=== PATIENT | female | born 1970 | race Caucasian/White ===

== ENCOUNTER 2016-09-10 09:43 | Observation (INO) | payer BC ==
[~2016-09-10] VITALS: Ht 170.2 cm; Wt 109.0 kg
[2016-09-10] VITALS (8 sets, daily range): BP systolic 119–138; BP diastolic 67–79; PULSE 68–86; RESP 14–22; TEMP 97.4–97.8; O2SAT 93–100
[2016-09-10] MEDS ORDERED: SODIUM CHLOR 0.9% 1000 ML INJ 1,000 ML IV SCH (10:05)
[2016-09-10] MEDS ORDERED: SODIUM CHLORIDE 0.9% FLUSH 5 ML FLUSH IVF PRN (10:15)
--- NOTE | 2016-09-10 10:19 | PD ---
HPI Chief Complaint: Altered Mental Status Time Seen by Provider: 10:05 Travel History International Travel<30 days: No Contact w/Intl Traveler<30days: No Traveled to known affect area: No History of Present Illness HPI The patient is a 46-year-old female who presents to the emergency department via EMS for altered mental status. The patient is currently in town for the [place]. The patient wants to race yesterday with family members, had approximately 6 beers to drink according to the . The patient does have a history of chronic back pain and anxiety for which she takes pain medications and Xanax, however, did not take those medications because she had been drinking alcohol. The states the patient ate dinner last night and went to bed feeling well. However, when she awakened this morning she felt nauseated and dizzy. The states the patient has appeared confused at times, has difficulty walking, and has complained of "not feeling". The patient denies taking too many of her chronic pain medications or anxiety medications. The patient denies any headache, but feels "off- balance ", nauseated, and dizzy. The patient denies any history of intracranial hemorrhage or diabetes. The patient's blood sugar was 171 according to the nursing staff upon arrival. The patient denies any fever, chills, or sweats. The patient denies any chest pain, shortness of breath, or abdominal pain. PFSH Past Medical History Asthma: Yes Hypertension: Yes Respiratory: Yes (ASTHMA / SARCOIDOSIS) Influenza Vaccination: No ?: Not Past Surgical History Hysterectomy: Yes (HTN) Other Surgery: Yes (BACK SURGERY) Social History Alcohol Use: Yes (OCCASIONALLY) Tobacco Use: No Substance Use: No Allergies-Medications (Allergen,Severity, Reaction): Coded Allergies: No Known Allergies (Unverified , 09/10/16) Reported Meds & Prescriptions Reported Meds & Active Scripts Active Reported Melatonin (Melatonin (Bulk)) 1 Pow Pow 10 Mg PO HS Flexeril (Cyclobenzaprine HCl) 10 Mg Tab 10 Mg PO TID Ibuprofen 800 Mg Tab 800 Mg PO Q8H PRN Alprazolam 1 Mg Tab 1 Mg PO DAILY PRN Hydrocodone-Acetaminophen 10-325 mg Tab 1 Tab PO Q6H PRN Zyrtec Allergy (Cetirizine HCl) 10 Mg Cap 10 Mg PO DAILY Review of Systems Except as stated in HPI: all other systems reviewed are Neg General / Constitutional: No: Fever HENT: Positive: Lightheadedness, No: Headaches Cardiovascular: No: Chest Pain or Discomfort Respiratory: No: Shortness of Breath Gastrointestinal: Positive: Nausea, Vomiting, No: Diarrhea, Abdominal Pain Musculoskeletal: Positive: Weakness Neurologic: Positive: Dizziness, Change in Mentation, Slurred Speech, No: Paresthesia, Sensory Disturbance Psychiatric: No: Substance Abuse Physical Exam Narrative GENERAL: Awake, somewhat lethargic 46-year-old female who appears her stated age and is in no acute respiratory distress. SKIN: Warm and dry. HEAD: Atraumatic. Normocephalic. EYES: Pupils equal and round. Pupils are 5 mm bilateral and reactive. ENT: No nasal bleeding or discharge. Slightly dry mucous membranes. NECK: Trachea midline. No JVD. CARDIOVASCULAR: Regular rate and rhythm. No murmur appreciated. RESPIRATORY: No accessory muscle use. Clear to auscultation. Breath sounds equal bilaterally. GASTROINTESTINAL: Abdomen soft, non-tender, nondistended. Obese, no rebound tenderness. MUSCULOSKELETAL: No obvious deformities. No clubbing. No cyanosis. No edema. NEUROLOGICAL: Awake, somewhat lethargic. No obvious cranial nerve deficits. Finger to nose is normal. No drift of the upper extremities. Patient is able to move her lower extremities. She is oriented to month, year, and place. PSYCHIATRIC: Unable to assess. Data Data Last Documented VS Vital Signs Date Time Temp Pulse Resp B/P Pulse Ox O2 Delivery O2 Flow Rate FiO2 09/10/16 11:58 69 18 133/69 100 Nasal Cannula 2 09/10/16 09:47 97.5 Orders Electrocardiogram (09/10/16 ) Ammonia (09/10/16 10:05) Complete Blood Count With Diff (09/10/16 10:05) Comprehensive Metabolic Panel (09/10/16 10:05) Creatine Kinase (Cpk) (09/10/16 10:05) Prothrombin Time / Inr (Pt) (09/10/16 10:05) Act Partial Throm Time (Ptt) (09/10/16 10:05) Troponin I (09/10/16 10:05) Thyroid Stimulating Hormone (09/10/16 10:05) Urinalysis - C+S If Indicated (09/10/16 10:05) Chest, Single Ap (09/10/16 10:05) Ct Brain W/O Iv Contrast(Rout) (09/10/16 10:05) Blood Glucose (09/10/16 10:05) Ecg Monitoring (09/10/16 10:05) Iv Access Insert/Monitor (09/10/16 10:05) Oximetry (09/10/16 10:05) Sodium Chloride 0.9% Flush (Ns Flush) (09/10/16 10:15) Sodium Chlor 0.9% 1000 Ml Inj (Ns 1000 M (09/10/16 10:05) Drug Screen, Random Urine (09/10/16 10:05) Alcohol (Ethanol) (09/10/16 10:05) Resp Blood Gas Venous (09/10/16 ) Ondansetron Inj (Zofran Inj) (09/10/16 10:30) Blood Gas Venous (Vbg) (09/10/16 10:17) CKMB (09/10/16 10:22) CKMB% (09/10/16 10:22) Labs Laboratory Tests Test 09/10/16 09/10/16 10:17 10:22 Blood Gas Puncture Site I.V. Blood Gas Patient Temperature 98.6 Venous Blood pH 7.32 Venous Blood Partial Pressure 50 mmHg CO2 Venous Blood Partial Pressure 47 mmHg O2 Venous Blood HCO3 25 mmol/L Venous Blood Oxygen Saturation 77 % Venous Blood Oxygen Content 14.6 Vol % Venous Blood Base Excess -0.3 mmol/L Oxygen Delivery Device NASAL CANNULA Blood Gas Liter Flow 2 L/M White Blood Count 5.9 TH/MM3 Red Blood Count 4.40 MIL/MM3 Hemoglobin 13.4 GM/DL Hematocrit 38.8 % Mean Corpuscular Volume 88.2 FL Mean Corpuscular Hemoglobin 30.6 PG Mean Corpuscular Hemoglobin 34.7 % Concent Red Cell Distribution Width 13.5 % Platelet Count 290 TH/MM3 Mean Platelet Volume 8.4 FL Neutrophils (%) (Auto) 40.3 % Lymphocytes (%) (Auto) 45.1 % Monocytes (%) (Auto) 8.9 % Eosinophils (%) (Auto) 4.8 % Basophils (%) (Auto) 0.9 % Neutrophils # (Auto) 2.4 TH/MM3 Lymphocytes # (Auto) 2.7 TH/MM3 Monocytes # (Auto) 0.5 TH/MM3 Eosinophils # (Auto) 0.3 TH/MM3 Basophils # (Auto) 0.1 TH/MM3 CBC Comment DIFF FINAL Differential Comment Prothrombin Time 10.5 SEC Prothromb Time International 1.0 RATIO Ratio Activated Partial 21.7 SEC Thromboplast Time Sodium Level 138 MEQ/L Potassium Level 3.8 MEQ/L Chloride Level 104 MEQ/L Carbon Dioxide Level 25.5 MEQ/L Anion Gap 9 MEQ/L Blood Urea Nitrogen 13 MG/DL Creatinine 0.87 MG/DL Estimat Glomerular Filtration 70 ML/MIN Rate Random Glucose 193 MG/DL Calcium Level 8.5 MG/DL Total Bilirubin 0.4 MG/DL Aspartate Amino Transf 36 U/L (AST/SGOT) Alanine Aminotransferase 38 U/L (ALT/SGPT) Alkaline Phosphatase 86 U/L Ammonia 23 MCMOL/L Total Creatine Kinase 858 U/L Creatine Kinase MB 4.9 NG/ML Creatine Kinase MB % 0.6 % Troponin I LESS THAN 0.02 NG/ML Total Protein 6.7 GM/DL Albumin 3.8 GM/DL Thyroid Stimulating Hormone 0.299 uIU/ML 3rd Gen Ethyl Alcohol Level LESS THAN 3 MG/DL [facility] Medical Decision Making Medical Screen Exam Complete: Yes Emergency Medical Condition: Yes Medical Record Reviewed: Yes Interpretation(s) EKG reveals normal sinus rhythm with a rate 80. Q wave noted in lead 3. Last Impressions Chest X-Ray 09/10/16 1005 Signed Impressions: Service Date/Time: Saturday, September 10, 2016 10:02 - CONCLUSION: Negative for acute process. Marek Robles MD FACR CT of the brain is negative for acute process Differential Diagnosis Differential diagnosis includes intracranial hemorrhage, subarachnoid hemorrhage , CVA, metabolic encephalopathy, medication side effect, unintentional overdose , drug ingestion. Narrative Course IV was established, labs are drawn and sent, and the patient was placed on cardiac telemetry monitoring and continuous pulse oximetry monitoring. EKG was ordered and interpreted. Chest x-ray was ordered. CT of the brain was ordered. The patient was administered Zofran [address] the brain is negative. Chest x-rays unremarkable. Patient's TSH is mildly low at 0.299, CK is mildly elevated in the 800s, otherwise lab work is unremarkable. The patient was reevaluated at 12 PM. The patient was reassessed, she is still lethargic, still feels like her arms and legs are heavy as well as having dizziness. The states that they the medications out prior to coming on vacation, he does not believe this is a drug overdose or ingestion causing the symptoms. No obvious source of the patient's altered mental status and encephalopathy, I suspect medication induced. However, patient denies over ingestion of her medications. Therefore, patient will be 23 hour observation, may benefit from MRI to rule out cerebellar/brain stem infarct and may benefit from neurology consultation. The on-call medical team was paged for 23 hour observation. Physician Communication Physician Communication The on-call medical team was paged for 23 hour observation. Diagnosis Primary Impression: Altered mental status Qualified Code: R41.0 - Disorientation Admitting Information Admitting Physician Requests: Observation Condition: Stable Kan Braden MD Sep 10, 2016 10:19
[2016-09-10 10:28] LABS: BLOOD GAS VENOUS BASE EXCESS -0.3 mmol/L (-2-2); BLOOD GAS VENOUS HCO3 25 mmol/L (22-26); BLOOD GAS VENOUS O2 CONTENT 14.6 Vol % (9.0-17.0); BLOOD GAS VENOUS O2 HGB SAT 77 % (70-76); BLOOD GAS VENOUS PCO2 50 mmHg (44-48); BLOOD GAS VENOUS PO2 47 mmHg (35-40); BLOOD GAS VENOUS pH 7.32 (7.360-7.400); CRITICAL VALUE YES; DRAW SITE I.V.; LITER FLOW 2 L/M; OXYGEN DEVICE NASAL CANNULA; STAT YES; TEMP CORR TO 98.6
[2016-09-10] MEDS ORDERED: ZYRT10CA PO (10:29)
[2016-09-10] MEDS ORDERED: ONDANSETRON HCL 4 MG/2 ML VIAL IV PUSH ONE (10:30)
[2016-09-10 10:34] LABS: AUTOMATED NEUTROPHIL # 2.4 TH/MM3 (1.8-7.7); BASOPHIL # 0.1 TH/MM3 (0-0.2); BASOPHIL % 0.9 % (0.0-2.0); EOSINOPHIL # 0.3 TH/MM3 (0-0.4); EOSINOPHIL % 4.8 % (0.0-4.0); HEMATOCRIT 38.8 % (35.0-46.0); HEMO FLAGS DIFF FINAL; LYMPH % 45.1 % (9.0-44.0); LYMPHOCYTE # 2.7 TH/MM3 (1.0-4.8); MEAN CELL VOLUME 88.2 FL (80.0-100.0); MEAN CORPUSCULAR HEMOGLOBIN 30.6 PG (27.0-34.0); MEAN CORPUSCULAR HGB CONC 34.7 % (32.0-36.0); MONO % 8.9 % (0.0-8.0); NEUT % 40.3 % (16.0-70.0); PLATELET COUNT 290 TH/MM3 (150-450); RED CELL DISTRIBUTION WIDTH 13.5 % (11.6-17.2); WHITE BLOOD COUNT 5.9 TH/MM3 (4.0-11.0)
--- NOTE | 2016-09-10 10:40 | RADRPT ---
EXAM DATE/TIME: 09/10/2016 10:02 [facility] COMPARISON: No previous studies available for comparison. INDICATIONS : Syncope. MEDICAL HISTORY : Hypertension. SURGICAL HISTORY : Lung biopsy. ENCOUNTER: Initial ACUITY: 1 day PAIN SCORE: 0/10 LOCATION: Bilateral chest FINDINGS: A single view of the chest demonstrates the lungs to be symmetrically aerated without evidence of mas s, infiltrate or effusion. The cardiomediastinal contours are unremarkable. Osseous structures are intact. CONCLUSION: Negative for acute process. Marek Robles MD FACR on September 10, 2016 at 10:38 Board Certified Radiologist. This report was verified electronically.
[2016-09-10 10:51] LABS: ANION GAP 9 MEQ/L (5-15)
[2016-09-10 10:52] LABS: APTT (PATIENT) 21.7 SEC (24.3-30.1); PROTHROMBIN TIME - PATIENT 10.5 SEC (9.8-11.6)
[2016-09-10] MEDS ORDERED: MELAPOW2 PO (10:52)
[2016-09-10] MEDS ORDERED: IBUP800T23 PO (10:52)
[2016-09-10] MEDS ORDERED: HYDR-3583 PO (10:52)
[2016-09-10] MEDS ORDERED: ALPR1TAB3 PO (10:52)
[2016-09-10] MEDS ORDERED: CYCL1TAB29 PO (10:52)
[2016-09-10 11:02] LABS: ALKALINE PHOSPHATASE 86 U/L (45-117); ALT (GPT) 38 U/L (10-53); AST (GOT) 36 U/L (15-37); BICARBONATE 25.5 MEQ/L (21.0-32.0); BLOOD UREA NITROGEN 13 MG/DL (7-18); CHLORIDE 104 MEQ/L (98-107); CREATINE KINASE 858 U/L (26-192); GLOMERULAR FILTRATION RATE 70 ML/MIN (>89); POTASSIUM 3.8 MEQ/L (3.5-5.1); SODIUM (NA) 138 MEQ/L (136-145); TOTAL BILIRUBIN ADULT 0.4 MG/DL (0.2-1.0)
[2016-09-10 11:20] LABS: CKMB 4.9 NG/ML (0.5-3.6)
--- NOTE | 2016-09-10 11:57 | RADRPT ---
EXAM DATE/TIME: 09/10/2016 11:44 [facility] COMPARISON: No previous studies available for comparison. INDICATIONS : Altered mental status,lehtargic today RADIATION DOSE: 56.35 CTDIvol (mGy) MEDICAL HISTORY : Hypertension. SURGICAL HISTORY : Hysterectomy. ENCOUNTER: Initial ACUITY: 1 day PAIN SCALE: 0/10 LOCATION: cranial TECHNIQUE: Multiple contiguous axial images were obtained of the head. Using automated exposure control and adj ustment of the mA and/or kV according to patient size, radiation dose was kept as low as reasonably a chievable to obtain optimal diagnostic quality images. FINDINGS: CEREBRUM: The ventricles are normal for age. No evidence of midline shift, mass lesion, hemorrhage or acute in farction. No extra-axial fluid collections are seen. POSTERIOR FOSSA: The cerebellum and brainstem are intact. The 4th ventricle is midline. The cerebellopontine angle i s unremarkable. EXTRACRANIAL: The visualized portion of the orbits is intact. SKULL: The calvaria is intact. No evidence of skull fracture. CONCLUSION: Negative for acute process. In Marek Robles MD FACR on September 10, 2016 at 11:54 Board Certified Radiologist. This report was verified electronically.
--- NOTE | 2016-09-10 12:31 | HHI.HP ---
HPI Service Family Medicine Primary Care Physician Non-Staff Admission Diagnosis altered mental status, encephalopathy versus drug ingestion Diagnoses: International Travel<30 Days: No Contact w/Intl Traveler<30days: No Known Affected Area: No History of Present Illness Patient is a 46-year-old female with a PMH significant for asthma and sarcoidosis. Presented due to weakness and altered mental status. This morning she woke up feeling weak with her extremities feeling heavy. She was able to ambulate to the bathroom and back but became very afraid as this was very abnormal. She endorsed associated vertigo, blurry vision, and slurred speech. did not see any facial droop. Denied any chest pain, SOB, diaphoresis. No prior episodes similar to this. Her speech, vision, dizziness has improved since being in the hospital. Denied any loss of consciousness or syncope. Prior to the events today, she was asymptomatic. She was attending the race at which time she had about 6 beers which is atypical for her. She takes [place], Xanax, Flexeril normally at home but did not take more than typical. Reports feeling asymptomatic except for increase leg cramps prior to going bed. She does report having leg cramps at baseline. (Gayathri Grey MD R2) Review of Systems Constitutional: COMPLAINS OF: Fatigue, Dizziness, DENIES: Diaphoretic episodes , Fever, Change in appetite Eyes: COMPLAINS OF: Blurred vision, DENIES: Eye pain Ears, nose, mouth, throat: DENIES: Throat pain, Hoarseness Respiratory: DENIES: Cough, Shortness of breath Cardiovascular: DENIES: Chest pain, Syncope, Dyspnea on Exertion, Lower Extremity Edema Gastrointestinal: DENIES: Abdominal pain, Constipation, Diarrhea, Nausea Genitourinary: DENIES: Dysuria Musculoskeletal: DENIES: Joint pain Integumentary: DENIES: Rash Neurologic: DENIES: Headache, Localized weakness (Gayathri Grey MD R2) Past Family Social History Past Medical History Sarcodosis Asthma HTN Past Surgical History Hysterectomy Laminectomy Right knee meniscus repair Lung biopsy for sarcoidosis Reported Medications Reported Meds & Active Scripts Active Reported Melatonin (Melatonin (Bulk)) 1 Pow Pow 10 Mg PO HS Flexeril (Cyclobenzaprine HCl) 5 Mg Tab 10 Mg PO TID Ibuprofen 800 Mg Tab 800 Mg PO Q8H PRN Alprazolam 1 Mg Tab 1 Mg PO DAILY PRN Hydrocodone-Acetaminophen 10-325 mg Tab 1 Tab PO Q6H PRN Zyrtec Allergy (Cetirizine HCl) 10 Mg Cap 10 Mg PO DAILY (Gayathri Grey MD R2) Allergies: Coded Allergies: No Known Allergies (Unverified , 09/10/16) Family History Mother: HTN, HLD Father: Asthma, HTN, CAD Social History Lives around [place], [place]. Lives with 2 children. In the area for [employer] Tobacco: denies Alcohol: socially on occasion Illicit: denies (Gayathri Grey MD R2) Physical Exam Vital Signs Vital Signs Date Time Temp Pulse Resp B/P Pulse Ox O2 Delivery O2 Flow Rate FiO2 09/10/16 11:58 69 18 133/69 100 Nasal Cannula 2 09/10/16 09:52 75 16 129/79 94 Nasal Cannula 2 09/10/16 09:47 97.5 86 16 129/79 93 Physical Exam GENERAL: This is a well-nourished, well-developed patient, in no apparent distress. SKIN: No rashes, ecchymoses or lesions. Cool and dry. EYES: Pupils equal round and reactive, increased dilation bilaterally. Extraocular motions intact. No scleral icterus. No injection or drainage. ENT: Nose without bleeding, purulent drainage. Throat without erythema, tonsillar hypertrophy or exudate. Uvula midline. Airway patent. NECK: No JVD or lymphadenopathy. CARDIOVASCULAR: Regular rate and rhythm without murmurs, gallops, or rubs. RESPIRATORY: Clear to auscultation. Breath sounds equal bilaterally. No wheezes , rales, or rhonchi. GASTROINTESTINAL: Abdomen soft, non-tender, nondistended. No hepato-splenomegaly , or palpable masses. No guarding. MUSCULOSKELETAL: Extremities without clubbing, cyanosis, or edema. No calf tenderness. NEUROLOGICAL: Awake and alert. Cranial nerves II through XII intact. Motor and sensory grossly within normal limits. Normal speech. Laboratory Laboratory Tests Test 09/10/16 09/10/16 10:17 10:22 Blood Gas Puncture Site I.V. Blood Gas Patient Temperature 98.6 Venous Blood pH 7.32 Venous Blood Partial Pressure 50 CO2 Venous Blood Partial Pressure 47 O2 Venous Blood HCO3 25 Venous Blood Oxygen Saturation 77 Venous Blood Oxygen Content 14.6 Venous Blood Base Excess -0.3 Oxygen Delivery Device NASAL CANNULA Blood Gas Liter Flow 2 White Blood Count 5.9 Red Blood Count 4.40 Hemoglobin 13.4 Hematocrit 38.8 Mean Corpuscular Volume 88.2 Mean Corpuscular Hemoglobin 30.6 Mean Corpuscular Hemoglobin 34.7 Concent Red Cell Distribution Width 13.5 Platelet Count 290 Mean Platelet Volume 8.4 Neutrophils (%) (Auto) 40.3 Lymphocytes (%) (Auto) 45.1 Monocytes (%) (Auto) 8.9 Eosinophils (%) (Auto) 4.8 Basophils (%) (Auto) 0.9 Neutrophils # (Auto) 2.4 Lymphocytes # (Auto) 2.7 Monocytes # (Auto) 0.5 Eosinophils # (Auto) 0.3 Basophils # (Auto) 0.1 CBC Comment DIFF FINAL Differential Comment Prothrombin Time 10.5 Prothromb Time International 1.0 Ratio Activated Partial 21.7 Thromboplast Time Sodium Level 138 Potassium Level 3.8 Chloride Level 104 Carbon Dioxide Level 25.5 Anion Gap 9 Blood Urea Nitrogen 13 Creatinine 0.87 Estimat Glomerular Filtration 70 Rate Random Glucose 193 Calcium Level 8.5 Total Bilirubin 0.4 Aspartate Amino Transf 36 (AST/SGOT) Alanine Aminotransferase 38 (ALT/SGPT) Alkaline Phosphatase 86 Ammonia 23 Total Creatine Kinase 858 Creatine Kinase MB 4.9 Creatine Kinase MB % 0.6 Troponin I LESS THAN 0.02 Total Protein 6.7 Albumin 3.8 Thyroid Stimulating Hormone 0.299 3rd Gen Ethyl Alcohol Level LESS THAN 3 (Gayathri Grey MD R2) Result Diagram: 09/10/16 1022 09/10/16 1022 Imaging Last Impressions Head CT 09/10/16 1005 Signed Impressions: Service Date/Time: Saturday, September 10, 2016 11:44 - CONCLUSION: Negative for acute process. In Marek Robles MD FACR Chest X-Ray 09/10/16 1005 Signed Impressions: Service Date/Time: Saturday, September 10, 2016 10:02 - CONCLUSION: Negative for acute process. Marek Robles MD FACR (Gayathri Grey MD R2) Assessment and Plan Assessment and Plan 46-year-old female with PMH significant for sarcoidosis and asthma. Admitted for altered mental status. Code Status Full Discussed Condition With sdw Dr. Dinero and Dr. Love (Gayathri Grey MD R2) Attending Attestation Patient seen and examined. Case reviewed and discussed with the resident team. Agree with plan of care as discussed with me and documented in the resident note. pt seen on admission in the ED with her (Елена Dinero MD) Problem List: (1) Altered mental status Status: Acute Plan: Improved symptoms of altered mental status, weakness, blurred vision since admission. History significant for 6 beers prior to admission that was outside of her norm. Neurologically patient is intact. Remaining physical exam unremarkable. Etiology unclear, ddx includes medication vs TIA/Stroke vs alcohol/drugs vs rhabdomyolysis vs infectious vs seizure vs electrolyte abnormality. Primary differential includes medication intoxication vs TIA/ ischemic stroke -VBG significant for respiratory acidosis -CK and random glucose elevated -Suppressed TSH -Ammonia unremarkable -UDS, UA, A1c, free T4 ordered -Troponin and EKG unremarkable -Cardiac telemetry -Neuro and glucose checks -Permissive HTN and head of bed flat Imaging: * MRI ordered * Head CT: Negative * CXR: Negative (2) Asthma Status: Acute Plan: Continue home Symbicort -Albuterol and Duonebs (3) Nutrition, metabolism, and development symptoms Status: Acute Plan: Diet: Regular Electrolytes: Unremarkable Fluids: NS at 120 DVT prophylaxis SCDs, no chemical anticoagulation due to concern of fall GI prophylaxis: None indicated Chronic conditions: * Anxiety: Continued home Xanax * HTN: Patient unaware of name of medication, Vasotec PRN (Gayathri Grey MD R2) Problem Qualifiers (1) Altered mental status: Qualified Code: R41.0 - Disorientation (2) Asthma: Qualified Code: J45.909 - Uncomplicated asthma, unspecified asthma severity Gayathri Grey MD R2 Sep 10, 2016 12:31 Елена Dinero MD Sep 12, 2016 13:37
[2016-09-10] MEDS ORDERED: ALPRAZolam 1 MG TAB PO PRN ×2 (12:45→21:00)
[2016-09-10] MEDS ORDERED: CALCIUM CARBONATE 500 MG CHEWABLE TAB CHEW PRN (13:30)
[2016-09-10] MEDS ORDERED: ONDANSETRON HCL 4 MG/2 ML VIAL IVP PRN (13:30)
[2016-09-10] MEDS ORDERED: SODIUM CHLORIDE 0.9% FLUSH 5 ML FLUSH FLUSH PRN (13:30)
[2016-09-10] MEDS ORDERED: BISACODYL 10 MG SUPP PR PRN (13:30)
[2016-09-10] MEDS ORDERED: RESP: ALBUTEROL 2.5 MG/3 ML NEB (PRN) INH (13:30)
[2016-09-10] MEDS ORDERED: ACETAMINOPHEN 325 MG TAB PO PRN (13:30)
[2016-09-10] MEDS ORDERED: NALOXONE HCL 0.4 MG/ML AMP IV PRN (13:30)
[2016-09-10] MEDS ORDERED: RESP: ALBUTEROL 2.5 MG/IPRATROPIUM 0.5 MG NEB (PRN) NEB (14:00)
[2016-09-10] MEDS ORDERED: SYMB160A INH (14:03)
[2016-09-10] MEDS ORDERED: SODIUM CHLORIDE 0.9% FLUSH 5 ML FLUSH IV FLUSH SCH (14:15)
[2016-09-10] MEDS ORDERED: FLUMAZENIL 0.5 MG/5 ML VIAL IV PUSH PRN (14:15)
[2016-09-10] MEDS ORDERED: DEXTROSE 50% IN WATER 50 ML VIAL(D50) IV PUSH PRN (14:15)
[2016-09-10] MEDS ORDERED: ENALAPRILAT 1.25 MG/ML VIAL IV PRN ×2 (14:15→15:00)
[2016-09-10] MEDS ORDERED: GLUCAGON 1 MG/ML VIAL IM/SQ PRN (14:15)
[2016-09-10] MEDS ORDERED: LORazepam 1 MG TAB PO PRN (14:15)
[2016-09-10] MEDS ORDERED: LORazepam 2 MG TAB PO PRN (14:15)
[2016-09-10] MEDS ORDERED: LORazepam 2 MG/ML VIAL IV PUSH PRN ×4 (14:15)
[2016-09-10] MEDS ORDERED: SODIUM CHLORIDE 0.9% FLUSH 5 ML FLUSH IV FLUSH PRN (14:15)
[2016-09-10] MEDS: SODIUM CHLOR 0.9% 1000 ML INJ 1,000 ML IV SCH ×2 (14:37→22:18)
[2016-09-10] MEDS: SODIUM CHLORIDE 0.9% FLUSH 5 ML FLUSH FLUSH SCH ×2 (14:37→21:00)
[2016-09-10] MEDS: ASPIRIN 81 MG CHEW TAB PO SCH (14:58)
[2016-09-10] MEDS: FOLIC ACID 1 MG TAB PO SCH (14:58)
[2016-09-10] MEDS: THIAMINE HCL 100 MG TAB PO SCH (14:58)
[2016-09-10] MEDS: MULTIVITAMINS/MINERALS THERAPEUTIC TAB PO SCH (14:58)
[2016-09-10 15:39] LABS: BLOOD, URINE NEG (NEG); GLUCOSE,URINE NEG (NEG); HYALINE CAST, URINE 1 /lpf (RARE); KETONE, URINE NEG (NEG); MUCUS URINE FEW /lpf (OCC); NITRITE,URINE NEG (NEG); PH, URINE 6.5 (5.0-8.5); SQUAMOUS EPITHELIAL CELL URINE 2 /hpf (0-5); TRANSITIONAL EPI CELLS, URINE <1 /hpf; URINE COLOR YELLOW (YELLW/STRAW)
[2016-09-10 15:41] LABS: COMMENT (UR) CATH-CULT NOT IND; CULTURE IF INDICATED CATH CULTURE NOT IND
[2016-09-10 15:44] LABS: AMPHETAMINE, URINE NEG (NEG); BARBITURATES, URINE NEG (NEG); COCAINE, URINE NEG (NEG)
[2016-09-10] MEDS: INSULIN ASPART SUPPLEMENTAL SCALE SQ SCH ×2 (16:00→21:00)
[2016-09-10] MEDS ORDERED: GADODIAMIDE PF 287 MG/ML 20 ML VIAL (for RAD MRI) IV ONE (17:46)
--- NOTE | 2016-09-10 18:46 | RADRPT ---
EXAM DATE/TIME: 09/10/2016 17:23 [facility] COMPARISON: No previous studies available for comparison. INDICATIONS : Syncope. CONTRAST: 21 cc Omniscan (gadodiamide) IV MEDICAL HISTORY : Hypertension. Asthma. SURGICAL HISTORY : Hysterectomy. Fusion, lumbar. ENCOUNTER: Initial ACUITY: 1 day PAIN SCORE: 0/10 LOCATION: cranial TECHNIQUE: Multiplanar, multisequence MRI of the brain was performed both prior to and following the administrat ion of paramagnetic contrast. FINDINGS: CEREBRUM: The ventricles are normal for age. No evidence of midline shift, mass lesion, hemorrhage or acute in farction. No extraaxial fluid collections are seen. The pituitary gland and suprasellar cistern are normal in configuration. WHITE MATTER: No significant signal abnormalities are seen in the white matter. POSTERIOR FOSSA: The cerebellum and brainstem are intact. The 4th ventricle is midline. The cerebellopontine angle is unremarkable. The cerebellar tonsils are normal in position. DIFFUSION IMAGING: No focal areas of restricted diffusion are seen. No evidence of acute infarction. EXTRACRANIAL: The visualized portions of the orbits and paranasal sinuses are unremarkable. POST-CONTRAST: No abnormal areas of parenchymal or dural enhancement. No evidence of blood-brain barrier breakdown. CONCLUSION: No acute disease. Ambrocio Murdock MD on September 10, 2016 at 18:44 Board Certified Radiologist. This report was verified electronically.
[2016-09-11 00:10] VITALS: BP 152/77; PULSE 84; RESP 23; TEMP 97.9; O2SAT 99
[2016-09-11 02:19] VITALS: PULSE 70
[2016-09-11 03:57] VITALS: BP 135/72; PULSE 68; RESP 23; TEMP 97.8; O2SAT 95
[2016-09-11] MEDS: SODIUM CHLOR 0.9% 1000 ML INJ 1,000 ML IV SCH (04:30)
[2016-09-11] MEDS: INSULIN ASPART SUPPLEMENTAL SCALE SQ SCH (07:00)
[2016-09-11 07:23] LABS: ANION GAP 9 MEQ/L (5-15); AUTOMATED NEUTROPHIL # 2.9 TH/MM3 (1.8-7.7); BASOPHIL % 0.7 % (0.0-2.0); BICARBONATE 25.1 MEQ/L (21.0-32.0); BLOOD UREA NITROGEN 9 MG/DL (7-18); CHLORIDE 111 MEQ/L (98-107); EOSINOPHIL # 0.2 TH/MM3 (0-0.4); EOSINOPHIL % 3.6 % (0.0-4.0); GLOMERULAR FILTRATION RATE 82 ML/MIN (>89); HEMATOCRIT 39.7 % (35.0-46.0); HEMO FLAGS DIFF FINAL; LYMPH % 31.7 % (9.0-44.0); LYMPHOCYTE # 1.6 TH/MM3 (1.0-4.8); MEAN CELL VOLUME 88.7 FL (80.0-100.0); MEAN CORPUSCULAR HEMOGLOBIN 30.2 PG (27.0-34.0); MEAN CORPUSCULAR HGB CONC 34.1 % (32.0-36.0); MONO % 6.1 % (0.0-8.0); NEUT % 57.9 % (16.0-70.0); PLATELET COUNT 244 TH/MM3 (150-450); RED BLOOD COUNT 4.47 MIL/MM3 (4.00-5.30); RED CELL DISTRIBUTION WIDTH 13.6 % (11.6-17.2); SODIUM (NA) 145 MEQ/L (136-145)
[2016-09-11 07:25] LABS: CREATINE KINASE 456 U/L (26-192); HDL CHOLESTEROL 55.8 MG/DL (40.0-60.0); LDL CHOLESTEROL 64 MG/DL (0-99)
[2016-09-11 07:59] LABS: CKMB 2.3 NG/ML (0.5-3.6)
[2016-09-11 08:20] VITALS: BP 153/87; PULSE 70; RESP 18; TEMP 97.7; O2SAT 93
[2016-09-11 08:23] VITALS: PULSE 67
[2016-09-11] MEDS: SODIUM CHLORIDE 0.9% FLUSH 5 ML FLUSH FLUSH SCH (09:00)
[2016-09-11] MEDS ORDERED: CETIRIZINE HCL 10 MG TAB PO SCH (09:00)
--- NOTE | 2016-09-11 10:04 | HHI.HP ---
[facility] Service Family Medicine Primary Care Physician Non-Staff Admission Diagnosis altered mental status, encephalopathy versus drug ingestion Diagnoses: (1) Altered mental status Diagnosis: Principal (2) Asthma Diagnosis: Principal (3) Nutrition, metabolism, and development symptoms Diagnosis: Principal International Travel<30 Days: No Contact w/Intl Traveler<30days: No Known Affected Area: No History of Present Illness Ms Meza is a 46-year-old female with a PMH significant for asthma and sarcoidosis. Presented due to weakness and altered mental status. This morning she woke up feeling weak with her extremities feeling heavy. She was able to ambulate to the bathroom and back but became very afraid as this was very abnormal. She endorsed associated vertigo, blurry vision, and slurred speech. did not see any facial droop. Denied any chest pain, SOB, diaphoresis. No prior episodes similar to this. Her speech, vision, dizziness has improved since being in the hospital. Denied any loss of consciousness or syncope. Prior to the events today, she was asymptomatic. She was attending the race at which time she had about 6 16 ounce beers which is atypical for her. She takes [place], Xanax, Flexeril normally at home but did not take more than typical. Reports feeling asymptomatic except for increased leg cramps prior to going bed on and off for the past week. She does have a history of restless leg. She does report having leg cramps at baseline. She received a liter of fluid and felt better but not back at baseline until receiving more fluids and rest overnight. She feels back to normal this am and requests being discharged. She had some Rhabdo and the fluids have helped and she is taking great po today and has no renal problems. Review of Systems Other Constitutional: COMPLAINS OF: Fatigue, Dizziness, DENIES: Diaphoretic episodes , Fever, Change in appetite Eyes: COMPLAINS OF: Blurred vision, DENIES: Eye pain Ears, nose, mouth, throat: DENIES: Throat pain, Hoarseness Respiratory: DENIES: Cough, Shortness of breath Cardiovascular: DENIES: Chest pain, Syncope, Dyspnea on Exertion, Lower Extremity Edema Gastrointestinal: DENIES: Abdominal pain, Constipation, Diarrhea, Nausea Genitourinary: DENIES: Dysuria Musculoskeletal: DENIES: Joint pain Integumentary: DENIES: Rash Neurologic: DENIES: Headache, Localized weakness Past Family Social History Past Medical History Sarcodosis Asthma HTN Past Surgical History Hysterectomy Laminectomy Right knee meniscus repair Lung biopsy for sarcoidosis Allergies: Coded Allergies: No Known Allergies (Unverified , 09/10/16) Family History Mother: HTN, HLD Father: Asthma, HTN, CAD Social History Lives around [place], [place]. Lives with 2 children. In the area for [place] Tobacco: denies Alcohol: socially on occasion Illicit: denies Physical Exam Vital Signs Vital Signs Date Time Temp Pulse Resp B/P Pulse Ox O2 Delivery O2 Flow Rate FiO2 09/11/16 08:20 97.7 70 18 153/87 93 09/11/16 03:57 97.8 68 23 135/72 95 09/11/16 02:19 70 09/11/16 00:10 97.9 84 23 152/77 99 09/10/16 22:09 18 09/10/16 19:44 97.8 84 22 119/67 94 09/10/16 15:49 70 09/10/16 15:29 97.4 68 18 138/73 97 09/10/16 13:53 100 Nasal Cannula 2.00 09/10/16 13:35 73 14 136/69 100 Nasal Cannula 2 09/10/16 11:58 69 18 133/69 100 Nasal Cannula 2 Physical Exam GENERAL: This is a well-nourished, well-developed patient, in no apparent distress. She feels back to normal this am SKIN: No rashes, ecchymoses or lesions. Cool and dry. EYES: Pupils equal round and reactive, increased dilation bilaterally on admission. Extraocular motions intact. No scleral icterus. No injection or drainage. ENT: Nose without bleeding, purulent drainage. Throat without erythema, tonsillar hypertrophy or exudate. Uvula midline. Airway patent. NECK: No JVD or lymphadenopathy. CARDIOVASCULAR: Regular rate and rhythm without murmurs, gallops, or rubs. RESPIRATORY: Clear to auscultation. Breath sounds equal bilaterally. No wheezes , rales, or rhonchi. GASTROINTESTINAL: Abdomen soft, non-tender, nondistended. No hepato-splenomegaly , or palpable masses. No guarding. MUSCULOSKELETAL: Extremities without clubbing, cyanosis, or edema. No calf tenderness. NEUROLOGICAL: Awake and alert. Cranial nerves II through XII intact. Motor and sensory grossly within normal limits. Normal speech. Ambulating in rea normally today Laboratory Laboratory Tests Test 09/10/16 09/10/16 09/10/16 09/10/16 10:17 10:22 15:29 15:30 Blood Gas Puncture Site I.V. Blood Gas Patient Temperature 98.6 Venous Blood pH 7.32 Venous Blood Partial Pressure 50 CO2 Venous Blood Partial Pressure 47 O2 Venous Blood HCO3 25 Venous Blood Oxygen Saturation 77 Venous Blood Oxygen Content 14.6 Venous Blood Base Excess -0.3 Oxygen Delivery Device NASAL CANNULA Blood Gas Liter Flow 2 White Blood Count 5.9 Red Blood Count 4.40 Hemoglobin 13.4 Hematocrit 38.8 Mean Corpuscular Volume 88.2 Mean Corpuscular Hemoglobin 30.6 Mean Corpuscular Hemoglobin 34.7 Concent Red Cell Distribution Width 13.5 Platelet Count 290 Mean Platelet Volume 8.4 Neutrophils (%) (Auto) 40.3 Lymphocytes (%) (Auto) 45.1 Monocytes (%) (Auto) 8.9 Eosinophils (%) (Auto) 4.8 Basophils (%) (Auto) 0.9 Neutrophils # (Auto) 2.4 Lymphocytes # (Auto) 2.7 Monocytes # (Auto) 0.5 Eosinophils # (Auto) 0.3 Basophils # (Auto) 0.1 CBC Comment DIFF FINAL Differential Comment Prothrombin Time 10.5 Prothromb Time International 1.0 Ratio Activated Partial 21.7 Thromboplast Time Sodium Level 138 Potassium Level 3.8 Chloride Level 104 Carbon Dioxide Level 25.5 Anion Gap 9 Blood Urea Nitrogen 13 Creatinine 0.87 Estimat Glomerular Filtration 70 Rate Random Glucose 193 Calcium Level 8.5 Total Bilirubin 0.4 Aspartate Amino Transf 36 (AST/SGOT) Alanine Aminotransferase 38 (ALT/SGPT) Alkaline Phosphatase 86 Ammonia 23 Total Creatine Kinase 858 Creatine Kinase MB 4.9 Creatine Kinase MB % 0.6 Troponin I LESS THAN 0.02 Total Protein 6.7 Albumin 3.8 Free Thyroxine 1.20 Thyroid Stimulating Hormone 0.299 3rd Gen Ethyl Alcohol Level LESS THAN 3 Urine Opiates Screen POS Urine Barbiturates Screen NEG Urine Amphetamines Screen NEG Urine Benzodiazepines Screen POS Urine Cocaine Screen NEG Urine Cannabinoids Screen POS Urine Color YELLOW Urine Turbidity CLEAR Urine pH 6.5 Urine Specific [place] 1.015 Urine Protein NEG Urine Glucose (UA) NEG Urine Ketones NEG Urine Occult Blood NEG Urine Nitrite NEG Urine Bilirubin NEG Urine Urobilinogen LESS THAN 2.0 Urine Leukocyte Esterase MOD Urine RBC LESS THAN 1 Urine WBC 4 Urine Squamous Epithelial 2 Cells Urine Transitional Epithelial <1 Cells Urine Hyaline Casts 1 Urine Mucus FEW Microscopic Urinalysis Comment CATH-CULT NOT IND Test 09/11/16 06:39 White Blood Count 5.0 Red Blood Count 4.47 Hemoglobin 13.5 Hematocrit 39.7 Mean Corpuscular Volume 88.7 Mean Corpuscular Hemoglobin 30.2 Mean Corpuscular Hemoglobin 34.1 Concent Red Cell Distribution Width 13.6 Platelet Count 244 Mean Platelet Volume 8.4 Neutrophils (%) (Auto) 57.9 Lymphocytes (%) (Auto) 31.7 Monocytes (%) (Auto) 6.1 Eosinophils (%) (Auto) 3.6 Basophils (%) (Auto) 0.7 Neutrophils # (Auto) 2.9 Lymphocytes # (Auto) 1.6 Monocytes # (Auto) 0.3 Eosinophils # (Auto) 0.2 Basophils # (Auto) 0.0 CBC Comment DIFF FINAL Differential Comment Sodium Level 145 Potassium Level 4.0 Chloride Level 111 Carbon Dioxide Level 25.1 Anion Gap 9 Blood Urea Nitrogen 9 Creatinine 0.76 Estimat Glomerular Filtration 82 Rate Random Glucose 106 Calcium Level 8.2 Total Creatine Kinase 456 Creatine Kinase MB 2.3 Creatine Kinase MB % 0.5 Triglycerides Level 129 Cholesterol Level 146 LDL Cholesterol 64 HDL Cholesterol 55.8 Cholesterol/HDL Ratio 2.61 Result Diagram: 09/11/16 0639 09/11/16 0639 Imaging Last Impressions Head CT 09/10/16 1005 Signed Impressions: Service Date/Time: Saturday, September 10, 2016 11:44 - CONCLUSION: Negative for acute process. In Marek Robles MD FACR Chest X-Ray 09/10/16 1005 Signed Impressions: Service Date/Time: Saturday, September 10, 2016 10:02 - CONCLUSION: Negative for acute process. Marek Robles MD FACR Assessment and Plan Assessment and Plan 46-year-old female with PMH significant for sarcoidosis and asthma. Admitted for altered mental status. spoke about danger of taking too mauch medicine plus [id number] substances and that peopel can especially with a benzo/alcohol combination. she understands and says she will not do this again Problem List: (1) Altered mental status Status: Acute Plan: Improved symptoms of altered mental status, weakness, blurred vision since admission. History significant for 6 16 ounce beers prior to admission that was outside of her norm plus benzos and opiates and marijuana. Neurologically patient is intact. Remaining physical exam unremarkable. Etiology unclear, ddx includes medication vs TIA/Stroke vs alcohol/drugs vs rhabdomyolysis vs infectious vs seizure vs electrolyte abnormality. Primary differential includes medication intoxication vs TIA/ischemic stroke -VBG significant for respiratory acidosis (on sedating meds) -CK and random glucose elevated -Suppressed TSH -Ammonia unremarkable -UDS, UA, A1c, free T4 ordered -Troponin and EKG unremarkable -Cardiac telemetry -Neuro and glucose checks -Permissive HTN and head of bed flat Imaging: * MRI ordered * Head CT: Negative * CXR: Negative (2) Asthma Status: Acute Plan: Continue home Symbicort -Albuterol and Duonebs (3) Nutrition, metabolism, and development symptoms Status: Acute Plan: Diet: Regular Electrolytes: Unremarkable Fluids: NS at 120 DVT prophylaxis SCDs, no chemical anticoagulation due to concern of fall GI prophylaxis: None indicated Chronic conditions: * Anxiety: Continued home Xanax * HTN: Patient unaware of name of medication, Vasotec PRN (4) Rhabdomyolysis Status: Acute Plan: better with fluids can continue to take po today Problem Qualifiers (1) Altered mental status: Qualified Code: R41.0 - Disorientation (2) Asthma: Qualified Code: J45.909 - Uncomplicated asthma, unspecified asthma severity (3) Rhabdomyolysis: Qualified Code: M62.82 - Non-traumatic rhabdomyolysis Елена Dinero MD Sep 11, 2016 10:04
--- NOTE | 2016-09-11 10:27 | HHI.DCPOC ---
Discharge Care Plan Diagnosis: (1) Altered mental status (2) Asthma Goals to Promote Your Health * To prevent worsening of your condition and complications * To maintain your health at the optimal level Directions to Meet Your Goals Take your medications as prescribed Follow your dietary instruction Follow activity as directed Keep your appointments as scheduled Take your immunizations and boosters as scheduled If your symptoms worsen call your PCP, if no PCP go to Urgent Care Center or Emergency Room Smoking is Dangerous to Your Health. Avoid second hand smoke Call the 24-hour hour crisis hotline for domestic abuse at Nikolas Love MD R1 Sep 11, 2016 10:27
[2016-09-11] MEDS: MULTIVITAMINS/MINERALS THERAPEUTIC TAB PO SCH (10:44)
[2016-09-11] MEDS: FOLIC ACID 1 MG TAB PO SCH (10:44)
[2016-09-11] MEDS: ASPIRIN 81 MG CHEW TAB PO SCH (10:45)
[2016-09-11] MEDS: THIAMINE HCL 100 MG TAB PO SCH (10:46)
[2016-09-11 16:32] LABS: HEMOGLOBIN A1a 0.8 %; HEMOGLOBIN A1b 1.7 %; HEMOGLOBIN Ao 85.6 %; HEMOGLOBIN LA1C 1.8 %; HEMOGLOBIN P3 3.4 %
--- NOTE | 2016-09-17 13:03 | EKG ---
Date Performed: 09/10/2016 Time Performed: 10:04:19 PTAGE: 46 years EKG: Sinus rhythm NORMAL ECG NO PREVIOUS TRACING DOCTOR: Otis Ta Interpretating Date/Time 09/17/2016 13:02:58
== END 2016-09-11 13:19 | disposition home or self-care (01) ==
LOC: NEPE 09:43 → NEDA 12:28 → NEPGCP 14:32
PROVIDERS: ADMIT Family Medicine; ATTEND Family Medicine
DX: R41.0 Disorientation, unspecified (principal); F41.9 Anxiety disorder, unspecified; M54.9 Dorsalgia, unspecified; G89.29 Other chronic pain; R42 Dizziness and giddiness; R11.2 Nausea with vomiting, unspecified; R26.2 Difficulty in walking, not elsewhere classified; I10 Essential (primary) hypertension; J45.909 Unspecified asthma, uncomplicated; D86.9 Sarcoidosis, unspecified; Z79.899 Other long term (current) drug therapy; R47.81 Slurred speech; H53.8 Other visual disturbances; E87.2 Acidosis; M62.82 Rhabdomyolysis
CPT/HCPCS: 70450; 70553; 71010; 80048; 80053; 80061; 80307; 80320; 81001; 82140; 82550; 82552; 82805; 82948; 83036; 84439; 84443; 84484; 85025; 85610; 85730; 93005; 96361; 96374; 97163; 99285; A9579; G0378; G8987; G8988; J2405; J7030